=== PATIENT | male | born 1990 | race Hispanic/Latino ===

== ENCOUNTER 2018-07-12 14:42 | Emergency (ER) | payer MEDICAID, OTHER ==
[2018-07-12] MEDS ORDERED: IBUPROFEN 600 MG TABLET ONE (14:57)
[2018-07-12] MEDS ORDERED: TETANUS/DIPHTHERIA TOXOID [ADULT] 0.5 ML VIAL IM ONE (15:32)
== END 2018-07-12 16:17 | disposition home or self-care (01) ==
LOC: EDH 14:42
DX: S91.201A Unspecified open wound of right great toe with damage to nail, initial encounter (principal); Z88.1 Allergy status to other antibiotic agents; W20.8XXA Other cause of strike by thrown, projected or falling object, initial encounter; Y93.89 Activity, other specified; Y92.69 Other specified industrial and construction area as the place of occurrence of the external cause; Y99.8 Other external cause status
CPT/HCPCS: 73630; 90471; 90714